=== PATIENT | female | born 1970 ===

== ENCOUNTER 2019-12-23 19:56 | Emergency (ER) | payer OTHER ==
[2019-12-23 20:06] VITALS: BP 144/96; RESP 20; TEMP 99.5
[2019-12-23 20:52] VITALS: PULSE 90
[2019-12-23] MEDS ORDERED: MORPHINE SULFATE 4 MG/ML SYRINGE IVP STA (22:04)
[2019-12-23] MEDS ORDERED: SODIUM CHLORIDE 0.9% 1,000 ML IV ONE (22:04)
--- NOTE | 2019-12-23 22:28 | XR ---
EXAMINATION TYPE: XR lumbar spine 2 or 3V DATE OF EXAM: 12/23/2019 COMPARISON: NONE HISTORY: Back pain TECHNIQUE: 3 views FINDINGS: Lumbar vertebra have normal spacing and alignment. Posterior elements are intact. Sacroilia c joints appear normal. IMPRESSION: Normal lumbar spine.
--- NOTE | 2019-12-23 22:34 | XR ---
EXAMINATION TYPE: XR thoracic spine 2V DATE OF EXAM: 12/23/2019 COMPARISON: NONE HISTORY: Back pain TECHNIQUE: 4 views FINDINGS: Thoracic vertebra have normal spacing and alignment. Posterior elements are intact. There i s no paraspinal mass. I see no compression fracture. IMPRESSION: Negative thoracic spine exam. No fracture seen.
[2019-12-23 22:46] LABS: Basophils # (A) 0.1 k/uL (0-0.2); Basophils % (A) 1 %; Eosinophils # (A) 0.1 k/uL (0-0.7); Eosinophils % (A) 1 %; HCT 40.9 % (34.0-46.0); HGB 13.1 gm/dL (11.4-16.0); Lymphocytes # (A) 1.9 k/uL (1.0-4.8); Lymphocytes % (A) 19 %; MCH 31.1 pg (25.0-35.0); MCHC 31.9 g/dL (31.0-37.0); MCV 97.6 fL (80.0-100.0); Mean Platelet Volume 7.3; Monocytes # (A) 0.7 k/uL (0-1.0); Monocytes % (A) 7 %; Neutrophils # (A) 6.9 k/uL (1.3-7.7); Neutrophils % (A) 71 %; Platelet Count 285 k/uL (150-450); RBC 4.19 m/uL (3.80-5.40); RDW 12.6 % (11.5-15.5); WBC 9.7 k/uL (3.8-10.6)
[2019-12-23 23:01] LABS: ALT 18 U/L (4-34); AST 23 U/L (14-36); African American GFR (CKD) >90 (>60 ml/min/1.73 sqM); Alkaline Phosphatase 40 U/L (38-126); Anion Gap 6 mmol/L; Blood Urea Nitrogen 9 mg/dL (7-17); Calcium 9.1 mg/dL (8.4-10.2); Carbon Dioxide 24 mmol/L (22-30); Chloride 105 mmol/L (98-107); Glucose 108 mg/dL (74-99); Non-African American GFR(CKD) >90 (>60 ml/min/1.73 sqM); Potassium 4.5 mmol/L (3.5-5.1); Sodium 135 mmol/L (137-145); Total Bilirubin 0.6 mg/dL (0.2-1.3); Total Protein 6.9 g/dL (6.3-8.2)
[2019-12-23 23:38] LABS: Appearance,Urine Clear (Clear); Color,Urine Light Yellow
[2019-12-23 23:39] LABS: Bilirubin,Urine Negative (Negative); Blood,Urine Negative (Negative); Glucose,Urine (UA) Negative (Negative); Ketones,Urine Negative (Negative); Nitrite,Urine Negative (Negative); Protein,Urine Negative (Negative); Specific Gravity,Urine 1.005 (1.001-1.035); Urobilinogen,Urine <2.0 mg/dL (<2.0)
[2019-12-23 23:40] LABS: Leukocyte Esterase,Urine Negative (Negative)
--- NOTE | 2019-12-23 23:53 | ED ---
General Adult HPI - General Chief complaint: Back Pain/Injury Stated complaint: Pack Pain, Head Pain Time Seen by Provider: 12/23/19 21:31 Source: patient, family Mode of arrival: ambulatory Limitations: no limitations - History of Present Illness Initial comments: 49-year-old female with past history of fibromyalgia and thyroid disorder who presents to the emergency department with reported low back pain which radiates up into her neck. Patient denies any inciting trauma. States that her pain started yesterday when she woke up from sleep. It is located in the paraspinal region. States the pain is worse with ambulation and positional changes. Pain shoots from her lumbar spine into her thoracic spine and up into her neck. She went to an urgent care today where they gave her a shot of Toradol and steroids. States that this did not help her symptoms. No imaging was performed. She is given a prescription for a also relaxer for which she states she took and this did not help her symptoms. Because of the persistence of the symptoms she presented to the emergency department. She denies any visual changes. the fovea. Denies any fevers or chills. No history of drug use. No numbness, tingling or weakness in her extremities. No concern for . Denies any anterior abdominal pain. No changes in her bowel or bladder habits. No flank pain. 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 - Related Data Home Medications Medication Instructions Recorded Confirmed Cholecalciferol [Vitamin D3 (25 1,000 unit PO DAILY 12/23/19 12/23/19 Mcg = 1000 Iu)] Cyclobenzaprine [Flexeril] 10 mg PO BID 12/23/19 12/23/19 Ginkgo Biloba 500 mg PO DAILY 12/23/19 12/23/19 Levothyroxine Sodium [Synthroid] 137 mcg PO DAILY 12/23/19 12/23/19 Liothyronine Sodium [Cytomel] 5 mcg PO DAILY 12/23/19 12/23/19 Meloxicam 15 mg PO DAILY PRN 12/23/19 12/23/19 Multivitamins, Thera [Multivitamin 1 tab PO DAILY 12/23/19 12/23/19 (formulary)] Turmeric Root Extract [Turmeric] 500 mg PO DAILY 12/23/19 12/23/19 Zinc 50 mg PO DAILY 12/23/19 12/23/19 methylPREDNISolone Dose Pack See Taper PO DIRECTED 12/23/19 12/23/19 [Medrol Dose Pack] Previous Rx's Medication Instructions Recorded Hydrocodone/Acetaminophen [Hiddenite 1 tab PO Q6HR PRN #12 tab 12/23/19 5-325] Allergies Allergy/AdvReac Type Severity Reaction Status Date / Time No Known Allergies Allergy Verified 12/23/19 22:39 Review of Systems ROS Statement: Those systems with pertinent positive or pertinent negative responses have been documented in the HPI. ROS Other: All systems not noted in ROS Statement are negative. Past Medical History Additional Past Medical History / Comment(s): fibromyalgia,. no thryoid. cx History of Any Multi-Drug Resistant Organisms: None Reported Past Surgical History: No Surgical Hx Reported, Section, Hysterectomy Additional Past Surgical History / Comment(s): thyroidectomy (right lobe) Past Psychological History: No Psychological Hx Reported Smoking Status: Current some day smoker Past Alcohol Use History: Occasional Past Drug Use History: None Reported General Exam Limitations: no limitations Course Vital Signs 12/23/19 20:03 Temperature 99.5 F Pulse Rate 90 Respiratory 20 Rate Blood Pressure 144/96 O2 Sat by Pulse 100 Oximetry Medical Decision Making - Medical Decision Making Upon arrival the patient is placed into room 7. A thorough history and physical exam was performed. PIV is established. The patient was given a dose of morphine she reports that she has not had any improvement in her symptoms with other pain medications and Tylenol threes she has available to her. Laboratory studies were conducted and x-rays of the patient's thoracic and lumbar spine were performed. The results are discussed the patient. She is reevaluated and does have improvement in her symptoms. I did discuss diagnosis, differential treatment options. Patient is seen and laboratory the emergency room without difficulty. At this time the patient will be discharged home and is to follow- up with her primary care physician in regards to her symptoms. She will be given a small prescription for Hiddenite as she is stating that she is failing all other treatments have been offered. Side effect profiles discussed. The patient is a new or worsening symptoms she should return to the emergency room. The patient was discharged home in stable condition - Lab Data Result diagrams: 12/23/19 22:39 12/23/19 22:39 Lab Results 08/14/20 08/14/20 08/14/20 Range/Units 22:39 22:39 22:39 WBC 9.7 (3.8-10.6) k/uL RBC 4.19 (3.80-5.40) m/uL Hgb 13.1 (11.4-16.0) gm/dL Hct 40.9 (34.0-46.0) % MCV 97.6 (80.0-100.0) fL MCH 31.1 (25.0-35.0) pg MCHC 31.9 (31.0-37.0) g/dL RDW 12.6 (11.5-15.5) % Plt Count 285 (150-450) k/uL Neutrophils % 71 % Lymphocytes % 19 % Monocytes % 7 % Eosinophils % 1 % Basophils % 1 % Neutrophils # 6.9 (1.3-7.7) k/uL Lymphocytes # 1.9 (1.0-4.8) k/uL Monocytes # 0.7 (0-1.0) k/uL Eosinophils # 0.1 (0-0.7) k/uL Basophils # 0.1 (0-0.2) k/uL Sodium 135 L (137-145) mmol/L Potassium 4.5 (3.5-5.1) mmol/L Chloride 105 (98-107) mmol/L Carbon Dioxide 24 (22-30) mmol/L Anion Gap 6 mmol/L BUN 9 (7-17) mg/dL Creatinine 0.61 (0.52-1.04) mg/dL Est GFR (CKD-EPI)AfAm >90 (>60 ml/min/1.73 sqM) Est GFR (CKD-EPI)NonAf >90 (>60 ml/min/1.73 sqM) Glucose 108 H (74-99) mg/dL Calcium 9.1 (8.4-10.2) mg/dL Total Bilirubin 0.6 (0.2-1.3) mg/dL AST 23 (14-36) U/L ALT 18 (4-34) U/L Alkaline Phosphatase 40 (38-126) U/L Total Protein 6.9 (6.3-8.2) g/dL Albumin 4.0 (3.5-5.0) g/dL Urine Color Light Yellow Urine Appearance Clear (Clear) Urine pH 6.0 (5.0-8.0) Ur Specific [place] 1.005 (1.001-1.035) Urine Protein Negative (Negative) Urine Glucose (UA) Negative (Negative) Urine Ketones Negative (Negative) Urine Blood Negative (Negative) Urine Nitrite Negative (Negative) Urine Bilirubin Negative (Negative) Urine Urobilinogen <2.0 (<2.0) mg/dL Ur Leukocyte Esterase Negative (Negative) Urine HCG, Qual (Not Detectd) 12/23/19 Range/Units 22:39 WBC (3.8-10.6) k/uL RBC (3.80-5.40) m/uL Hgb (11.4-16.0) gm/dL Hct (34.0-46.0) % MCV (80.0-100.0) fL MCH (25.0-35.0) pg MCHC (31.0-37.0) g/dL RDW (11.5-15.5) % Plt Count (150-450) k/uL Neutrophils % % Lymphocytes % % Monocytes % % Eosinophils % % Basophils % % Neutrophils # (1.3-7.7) k/uL Lymphocytes # (1.0-4.8) k/uL Monocytes # (0-1.0) k/uL Eosinophils # (0-0.7) k/uL Basophils # (0-0.2) k/uL Sodium (137-145) mmol/L Potassium (3.5-5.1) mmol/L Chloride (98-107) mmol/L Carbon Dioxide (22-30) mmol/L Anion Gap mmol/L BUN (7-17) mg/dL Creatinine (0.52-1.04) mg/dL Est GFR (CKD-EPI)AfAm (>60 ml/min/1.73 sqM) Est GFR (CKD-EPI)NonAf (>60 ml/min/1.73 sqM) Glucose (74-99) mg/dL Calcium (8.4-10.2) mg/dL Total Bilirubin (0.2-1.3) mg/dL AST (14-36) U/L ALT (4-34) U/L Alkaline Phosphatase (38-126) U/L Total Protein (6.3-8.2) g/dL Albumin (3.5-5.0) g/dL Urine Color Urine Appearance (Clear) Urine pH (5.0-8.0) Ur Specific [place] (1.001-1.035) Urine Protein (Negative) Urine Glucose (UA) (Negative) Urine Ketones (Negative) Urine Blood (Negative) Urine Nitrite (Negative) Urine Bilirubin (Negative) Urine Urobilinogen (<2.0) mg/dL Ur Leukocyte Esterase (Negative) Urine HCG, Qual Not Detected (Not Detectd) Disposition Clinical Impression: Back pain Disposition: HOME SELF-CARE Condition: Stable Instructions (If sedation given, give patient instructions): Acute Low Back Pain (ED) Additional Instructions: Please follow with your primary care doctor in regards to your symptoms. You may need an MRI. Return to the emergency room for any new or worsening symptoms Prescriptions: Hydrocodone/Acetaminophen [Hidden[place] 5-325] 1 tab PO Q6HR PRN #12 tab PRN Reason: Pain Is patient prescribed a controlled substance at d/c from ED?: Yes When asked, does pt state using other controlled substances?: No If prescribed controlled substance>3 days was MAPS reviewed?: Prescribed <3 Days If opioid is for acute pain is fill amount 7 days or less?: Yes If Rx opioid, was Start Talking consent form obtained?: Yes Referrals: None,Stated [Primary Care Provider] - 1-2 days Time of Disposition: 23:53
== END 2019-12-24 00:06 | disposition home or self-care (01) ==
LOC: EC 19:56
DX: M54.5 Low back pain (principal); M79.7 Fibromyalgia; E07.9 Disorder of thyroid, unspecified; E89.0 Postprocedural hypothyroidism; F17.200 Nicotine dependence, unspecified, uncomplicated; Z79.899 Other long term (current) drug therapy; Z79.890 Hormone replacement therapy
CPT/HCPCS: 36415; 80053; 85025; 81003; 81025; 72070; 72100; 99283; 96374; J2270